=== PATIENT | female | born 1985 | race Caucasian/White ===

== ENCOUNTER 2021-08-09 23:14 | Emergency (ER) | payer BC, OTHER ==
[~2021-08-09] VITALS: Ht 170.2 cm; Wt 109.0 kg
--- NOTE | 2021-08-10 00:53 | PHYS DOC ---
Past Medical History Past Medical History: No Pertinent History Past Surgical History: , Other Additional Past Surgical Histo: Shoulder Smoking Status: Current Every Day Smoker Alcohol Use: Rarely Drug Use: None Adult General Chief Complaint Chief Complaint: URINARY RETENTION HPI HPI The patient is a 36-year-old female who is otherwise healthy. She began to have some vaginal itching and discomfort about 5 days ago. She went to her primary care office where she received a prescription for metronidazole gel and another for Diflucan. She states these medications have been ineffective and over the last couple of days she has noticed increasing difficulty emptying her bladder, culminating this evening and inability to urinate at all since 6 PM, about 6 hours prior to arrival. Has never had this issue in the past. Feels like she very much needs to urinate but cannot. She denies associated fevers, nausea or vomiting, abdominal pain, flank pain, unusual vaginal discharge or bleeding, changes in bowel habits. Vital signs are appropriate here and the patient is in no acute distress. Review of Systems Review of Systems A 12 point review of systems was completed and was negative except where noted in HPI above. Allergies Allergies Allergies Coded Allergies Type Severity Reaction Last Updated Verified No Known Drug Allergies 08/09/21 No Physical Exam Physical Exam 36-year-old female appearing nontoxic and in no acute distress. Head is normocephalic and atraumatic. Neck is supple and nontender. Oropharynx is moist. Lungs are clear to auscultation at all stations. There is normal S1 and S2 without rubs or gallops and capillary refill is appropriate, less than 2 seconds globally. Abdomen is soft, nontender and nondistended. Skin is warm and dry without cyanosis, clubbing or edema. Psychiatrically, the patient demonstrates appropriate mood and affect and is alert. External genitourinary examination completed with nurse pathology laboratory aide Gini reveals whitish discharge to the most superficial aspect of the vaginal vault which appears to be consistent with yeast. No rashes, lesions, bleeding, inguinal lymphadenopathy or other acute process noted. No significant erythema or tenderness anywhere. Current Patient Data Vital Signs Vital Signs Date Time Temp Pulse Resp B/P (MAP) Pulse Ox O2 Delivery O2 Flow Rate FiO2 08/09/21 23:30 98.4 93 20 134/74 (94) 99 Room Air 98.4 Lab Values Laboratory Tests Test 08/10/21 01:25 Urine Collection Type Unknown Urine Color (Auto) Light yellow Urine Turbidity Clear Urine pH (Auto) 5.5 (<5.0-8.0) Urine Specific [place] 1.017 (1.000-1.030) Urine Protein (Auto) 50 mg/dL (Negative) Urine Glucose (Auto)(UA) Negative mg/dL (Negative) Urine Ketones (Auto) Negative mg/dL (Negative) Urine Blood (Auto) Large (Negative) Urine Nitrite Negative (Negative) Urine Bilirubin (Auto) Negative (Negative) Urine Urobilinogen (Auto) Normal mg/dL (Normal) Urine Leukocyte Esterase (Auto) Negative (Negative) Urine RBC 20-40 /HPF (0-2) Urine WBC 1-4 /HPF (0-4) Urine Squamous Epithelial Cells Few /LPF Urine Bacteria 0 /HPF (0-FEW) Urine Mucus Slight /LPF Urine Test Negative (NEG) Microbiology 08/10/21 Wet Prep - Final, Complete EKG EKG [] Radiology/Procedures Radiology/Procedures [] Course & Med Decision Making Course & Med Decision Making Bladder scan shows greater than 750 mL retained. We will pass a Mae catheter. We will perform pelvic examination to better characterize the likely infectious etiology of patient's acute urinary retention. We will then reevaluate. 0336: Patient resting comfortably in no acute distress on serial reassessments. Wet prep negative for yeast but clinically patient appears to have a significant yeast infection. Pelvic examination unremarkable aside from discharge consistent with vulvovaginal yeast. Mae was placed with immediate resolution of urinary retention. Mae bag filled with clear yellow urine. Case was discussed in detail with monitoring engineer Dr. Enrique who advised that patient stop the metronidazole gel that was previously prescribed to her and to be prescribed 7 days of teraconazole vaginal cream. Will prescribe. Will provide a leg bag. Patient is to follow-up with her monitoring engineer on Friday in the office as already scheduled. In the meantime, she understands that if she feels worse instead of better or develops other new symptoms of concern that she should return to the emergency department immediately for reevaluation. All questions are answered Dragon Disclaimer Dragon Disclaimer This electronic medical record was generated, in whole or in part, using a voice recognition dictation system. Departure Departure Impression: Primary Impression: Acute urinary retention Additional Impression: Vulvovaginal candidiasis Disposition: HOME / SELF CARE / HOMELESS Condition: IMPROVED Patient Instructions: Candidal Vulvovaginitis, [id number], Urinary Retention, Acute, Female Additional Instructions: Follow-up very closely with your monitoring engineer in the office on Friday as already scheduled for a reevaluation of your symptoms and to discussion of next best steps in care. Keep the Mae catheter in place until seen by your monitoring engineer in the office. Our monitoring engineer on duty would like you to stop using the metronidazole gel you were previously prescribed by your doctor. Instead, apply teraconazole vaginal cream to your vagina at bedtime for the next 7 days. Return to the emergency department right away for worsening symptoms of any kind or with any other new symptoms of concern. Problem Qualifiers NAHEED HOLDEN MD Aug 10, 2021 00:53
[2021-08-10 01:42] LABS: BACTERIA,URINE 0 /HPF (0-FEW); RBC,URINE 20-40 /HPF (0-2)
[2021-08-10 01:49] LABS: U PREG PATIENT NEGATIVE (NEG)
[2021-08-10 04:00] VITALS: BP 126/68
[2021-08-11 19:09] LABS: GC PROBE Negative (Negative)
== END 2021-08-10 04:05 | disposition home or self-care (01) ==
LOC: ER 23:14
DX: B37.3 Candidiasis of vulva and vagina (principal); R33.8 Other retention of urine; F17.200 Nicotine dependence, unspecified, uncomplicated; Z98.890 Other specified postprocedural states
CPT/HCPCS: 51702; 81001; 81025; 87491; 87591; 99285; A4314; Q0111